=== PATIENT | female | born 1990 | race Caucasian/White ===

== ENCOUNTER → 2017-08-29 | Outpatient (CLI) | payer BC ==
[~2017-08-29] MED LIST: HYDR1TAB PO; ONDA4TAB PO
[2017-08-29 14:42] LABS: PLATELET COUNT, AUTOMATED 338 K/uL (150-450)
== END ==
LOC: LAB 14:26
PROVIDERS: ATTEND Nurse Practitioner Family
DX: R53.83 Other fatigue (principal); R63.5 Abnormal weight gain
CPT/HCPCS: 36415; 84439; 84480; 85025; 86376; 86800